=== PATIENT | female | born 1995 | race Caucasian/White ===

== ENCOUNTER → 2018-02-12 | Outpatient (CLI) | payer OTHER ==
[~2018-02-12] MED LIST: GADOBENATE 529MG/1ML 15ML VIAL IVP ONE
--- NOTE | 2018-02-12 09:42 | RADIOLOGY IMAGING REPORT ---
FACILITY: [facility] PATIENT NAME: Corrine Queen : 1995 MR: [id number] V: [id number] EXAM DATE: ORDERING PHYSICIAN: [facility] TECHNOLOGIST: [facility] Patient: Corrine Queen : 1995 Visit/Account:[id number] Date of Sevice: 02/12/2018 EXAMINATION: MRI Brain without intravenous contrast MRI Brain with intravenous contrast HISTORY: Chronic headache. COMPARISON: None available. TECHNIQUE: Multi-planar, multi-sequence brain MRI was performed before and after IV gadolinium. CONTRAST: 13 mL of IV MultiHance FINDINGS: Brain volume: Normal. Sagittal midline structures: Negative. 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 Acute ischemic changes: None. Hemorrhage: None. Masses / edema: None. Enhancement: Negative. Malone-white: Negative. White matter: Negative. Vessels: Negative. Extra-axial: Negative. Calvarium / scalp: Negative. Skull base: Negative. Visualized sinuses / orbits: Negative. Visualized upper neck: Negative. IMPRESSION: 1. No acute intracranial abnormality or mass. 2. Questionable subependymoma nodules or grade matter heterotopia in or adjacent to the frontal horn s (series 8, images 14 and 15). Alternatively this could be chronic periventricular white matter dis ease. Report Dictated By: Caio Daniel MD at 02/12/2018 9:27 AM Report E-Signed By: Caio Daniel MD at 02/12/2018 9:38 AM WSN:[id number]
== END ==
LOC: MRI 07:23
DX: R93.0 Abnormal findings on diagnostic imaging of skull and head, not elsewhere classified (principal)
CPT/HCPCS: 70553; A9577